=== PATIENT | female | born 1975 | race Caucasian/White ===

== ENCOUNTER 2021-03-13 11:21 | Emergency (ER) | payer MEDICAID ==
[~2021-03-13] VITALS: Ht 170.2 cm; Wt 96.0 kg
[~2021-03-13 11:21] MED LIST: TOPUD PO
[2021-03-13] MEDS ORDERED: AMOX-494 MT (11:44)
[2021-03-13] MEDS ORDERED: IBUP-2030 MT (11:44)
[2021-03-13] MEDS ORDERED: OFLO5DRO4 RIGHT EAR (11:44)
[2021-03-13] MEDS ORDERED: KETOROLAC 30MG/ML VIAL IM ONE (11:45)
[2021-03-13 12:10] VITALS: BP 134/72
== END 2021-03-13 12:11 | disposition home or self-care (01) ==
LOC: ER 11:21
DX: H66.91 Otitis media, unspecified, right ear (principal); Z90.49 Acquired absence of other specified parts of digestive tract
CPT/HCPCS: 96372; 99283; J1885